=== PATIENT | male | born 1940 | race Caucasian/White ===

== ENCOUNTER 2017-05-22 07:19 | Day surgery (SDC) | payer MEDICARE, OTHER ==
--- NOTE | 2017-05-08 11:10 | HP ---
CC: Conor Kendall MD HISTORY AND PHYSICAL: DATE OF PLANNED ADMISSION/SURGERY: 05/22/17 HISTORY OF PRESENT ILLNESS: Mr. Barrientos is a 77-year-old white male who is admitted with bladder tumors for cystoscopy, bilateral retrograde pyelographies and transurethral resection of bladder tumors. I have been following Mr. Barrientos for the last 5 years because of elevated PSA. 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 He underwent a robotic radical prostatectomy at [facility] in May 2012. The pathology showed stage II Adelita 7 disease. He has done very well since his surgery and his PSA has remained undetectable at 0.0. He continued to have good stream and good urinary continence. He presented to my office for followup and because of a new onset of painless gross hematuria. This was not associated with any flank pain or any changes in his voiding. Bilateral renal ultrasound was normal showing small bilateral simple cysts. Cystoscopy showed 3 bladder tumors located in the left lateral bladder wall just proximal to the bladder neck. The tumors measured between 1 and 1.5 cm in size and looked well differentiated and non invasive. The left ureteral orifice was not involved. The rest of the bladder wall looked normal. The patient has history of allergy to IV CONTRAST, no CT urogram was obtained pre-op, because of that reason, and to evaluate his upper tracts, bilateral retrograde pyelographies will be performed. PAST MEDICAL HISTORY/SYSTEM REVIEW: He was a chronic heavy smoker until 2 years ago when he stopped. He is hypertensive, controlled on lisinopril 40 mg daily. He has hypothyroidism , on Synthroid 25 mcg daily. He has hyperlipidemia and is maintained on Lipitor 40 mg daily and on Crestor 10 mg daily. ALLERGIES: He denies any allergies to medications. He reports having a rash to IV CONTRAST. PHYSICAL EXAMINATION GENERAL: Pleasant and healthy-looking white male. VITAL SIGNS: Blood pressure 130/80, pulse of 80. LUNGS: Clear. HEART: Regular and rhythmic. No murmurs. ABDOMEN: Soft. No masses, no tenderness and no CVA tenderness. EXTERNAL GENITALIA: Normal. IMPRESSION: 1. Bladder tumors with past history of smoking. 2. Status post radical prostatectomy for prostate carcinoma with good surgical result and no evidence of recurrent disease. PLAN: For cystoscopy, bilateral retrograde pyelographies to evaluate the upper tracts, and transurethral resection of the bladder tumors. I discussed above plans in detail with the patient and his . They both understand that he is going to need close follow-ups including frequent cystoscopies. He also might need additional treatments depending upon the pathology report. All of their questions were answered. [id number]/[facility] #: [id number] TEODORO
[~2017-05-22 07:19] MED LIST: Buffered Lidocaine 0.9% SYRIN* 5 ML/SYR SYRINGE INTRADERM ONE; Dexamethasone IV* 4 MG/ML 1 ML (4 MG) IV SLOW PU ONE
[2017-05-22] MEDS ORDERED: cefTRIAXone(*) 2 GM ADDV.VIAL IVPB ONE (07:20)
[2017-05-22] MEDS ORDERED: Dexamethasone IV* 4 MG/ML 1 ML (4 MG) ONE ×2 (07:20→07:22)
[2017-05-22] MEDS ORDERED: Propofol* 10 MG/ML 20 ML BTL IV PUSH ONE (08:49)
[2017-05-22] MEDS ORDERED: Chloroprocaine 2%* 20 ML VIAL ONE (08:49)
[2017-05-22] MEDS ORDERED: Ondansetron INJ* 2 MG/ML VIAL ONE (08:49)
[2017-05-22] MEDS ORDERED: Midazolam* 1 MG/ML 5 ML VIAL (5 MG) ONE (08:49)
[2017-05-22] MEDS ORDERED: Iohexol 180 (CONTRAST) 10 ML SDV IV ONE ×2 (09:31→10:02)
[2017-05-22] MEDS ORDERED: Furosemide IV* 10 MG/ML 2 ML VIAL (20 MG) ONE (09:43)
[2017-05-22] MEDS ORDERED: Phenylephrine INJ* 10 MG/ML 1 ML VIAL (10 MG) ONE (09:51)
[2017-05-22] MEDS ORDERED: oxyCODONE/Acetamin 5/325 MG* TAB PO PRN (10:26)
[2017-05-22] MEDS ORDERED: fentaNYL* 50 MCG/ML 2 ML VIAL (100 MCG VIAL) IV PRN (10:26)
[2017-05-22] MEDS ORDERED: Ondansetron INJ* 2 MG/ML VIAL IV PRN (10:26)
[2017-05-22] MEDS ORDERED: DiMENhydriNATE IV* 50 MG/ML VIAL IV PUSH PRN (10:26)
[2017-05-22] MEDS ORDERED: fentaNYL* 50 MCG/ML 2 ML VIAL (100 MCG VIAL) ONE (10:55)
[2017-05-22] MEDS ORDERED: mitoMYcin PWD* 40 MG in Sterile Water for Inj* 40 ML IRRIGATION ONE (11:00)
[2017-05-22] MEDS ORDERED: oxyCODONE/Acetamin 5/325 MG* TAB ONE ×2 (11:17→11:52)
[2017-05-22 13:35] VITALS: BP 160/88
--- NOTE | 2017-05-22 13:37 | RAD ---
INDICATION: Cystoscopy with bilateral ureteroscopy COMPARISON: None FINDINGS: 21 seconds of fluoroscopy were provided for the urology department. Fluoroscopic spot imaging of the abdomen were obtained for operative control. There is bilateral ureteroscopy. No ureteral or renal pelvic filling defects are appreciated on the submitted images. There is no hydronephrosis. CPT II Codes: 6045F (fluoro time doc)
--- NOTE | 2017-05-23 00:02 | OP ---
CC: Dr. Kendall OPERATIVE REPORT: DATE OF OPERATION: 05/22/17 DATE OF : 44 SURGEON: Lawrence Jimenes MD. ANESTHESIOLOGIST: Artie Thompson MD ANESTHESIA: Spinal. PRE-OP DIAGNOSES: 1. Multiple bladder tumors (left lateral and anterior bladder neck). 2. Status post radical prostatectomy. POST-OP DIAGNOSES: 1. Multiple bladder tumors (left lateral and anterior bladder neck). 2. Status post radical prostatectomy. OPERATIVE PROCEDURE: 1. Cystoscopy. 2. Bilateral retrograde pyelographies. 3. Transurethral resection of bladder tumors (3 tumors, 1.5 cm each). 4. Placement of left ureteral stent (6-Rwandan). INDICATIONS FOR PROCEDURE: Mr. Barrientos is a 77-year-old white male who had undergone a robotic radical prostatectomy for bulky Adelita 6 adenocarcinoma of the prostate in February 2012. He had good results and no evidence of recurrent disease. He presented to my office because of new onset of recurrent episodes of gross hematuria. He was a heavy smoker until 2 years ago. Renal ultrasound was normal. Cystoscopy showed several tumors just proximal to the bladder neck involving the lateral and anterior deleon. The patient has a history of allergic reaction to IV CONTRAST, so a CT urogram was not obtained. Because of the above history and findings, the patient was admitted for the above procedures. PATHOLOGY AT CYSTOSCOPY: The penile and bulbar urethrae looked normal. 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 Examination of the bladder showed 3 tumors that were located just proximal to the bladder neck, starting just lateral to the left ureteral orifice, and extending till the ant wall. 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 Bilateral retrograde pyelographies showed no abnormal filling defects in the ureters or in the collecting systems and no hydronephrosis. DESCRIPTION OF PROCEDURE: After successful spinal anesthesia, the patient was placed in the lithotomy position and was prepped and draped in the usual manner. Cystoscopy was performed. The bladder was carefully inspected and the above findings were noted. A flexible tip guidewire was then introduced into the left orifice. An open- ended catheter was fed on top of the guidewire and positioned in the distal ureter. Retrograde pyelography was then performed filling up the ureter and the collecting system and demonstrating no pathology. Similar retrograde was performed on the right side. The cystoscope was then removed and the resectoscope was introduced inside the bladder. Water was used for irrigation and the inflow and outflow were adjusted to avoid overdistention of the bladder. The tumors were resected down to muscle.The bladder was irrigated and the resected tissue was evacuated and sent for pathology. Inspection showed no residual tumors and no bladder perforation. There was however partial resection of a portion of the intramural portion of the Lt ureter just proximal to the orifice, located posterior to one of the tumors. Decision was made to place a Lt ureteral stent. A left retrograde was then performed and a 6-Rwandan stent was then placed with the proximal end coiling in the collecting system and the distal end coiling inside the bladder. Resectoscope was reintroduced inside the bladder. Extensive fulguration of the resected bed of the tumor was performed achieving a very good hemostasis. After a final inspection, which showed no residual tumors and very good hemostasis and no evidence of any bladder perforation, the resectoscope was removed and the size 16-Rwandan Alegre catheter was passed inside the bladder and the balloon inflated with 10 cc of water. The patient tolerated the procedure well and left the operating room in good condition. The blood loss was minimal. The specimen was bladder tumors. The plan is to give the patient 1 dose of intravesical mitomycin C in the recovery room. The stent will be removed in the office in about 3 weeks. [id number]/[facility] #: [id number] TEODORO
== END 2017-05-22 13:28 | disposition home or self-care (01) ==
LOC: OR 07:19
PROVIDERS: ATTEND Urology
DX: C67.2 Malignant neoplasm of lateral wall of bladder (principal); Z90.79 Acquired absence of other genital organ(s); Z85.46 Personal history of malignant neoplasm of prostate; Z96.0 Presence of urogenital implants; Z87.891 Personal history of nicotine dependence; Z91.041 Radiographic dye allergy status; I10 Essential (primary) hypertension; E03.9 Hypothyroidism, unspecified; E78.5 Hyperlipidemia, unspecified
CPT/HCPCS: 74420; 88305; A9270-GY; C1876; J0696; J1100; J1940; J2250; J2400; J2405; J2704; J3010; J9280

== ENCOUNTER 2018-10-08 08:05 | Emergency (ER) | payer MEDICARE, OTHER ==
--- NOTE | 2018-10-08 08:30 | ED ---
Back Pain - HPI Summary HPI Summary: Pt is a 78 y/o male who presents to the ED c/o back pain. Pt injured his back 4 weeks ago and since then has been having severe right lower back pain. The pain is rated a 9/10 in severity and radiates down his right leg. Pt reports pain with lying flat, standing straight, movement, and bending over. He also c/o decreased ROM of his LE due to pain. Pt denies any pain to palpation, urinary/ bowel incontinence, or weakness. He was sent here by Dr. Kendall for an MRI and pain control. Pt attempted to have an MRI 4 days ago but was unsuccessful because he could not lie flat due to the pain. He has taken Hydrocodone without any pain relief. Pt had an XR done which revealed arthritis. PMSHx arthritis, left knee replacement. - History of Current Complaint Chief Complaint: EDBackInjuryPain Stated Complaint: "BACK INJURY" PER PT Time Seen by Provider: 10/08/18 08:27 Hx Obtained From: Patient, Family/[employer] - Onset/Duration: Sudden Onset, Lasting Weeks - 4, Still Present Onset/Duration: Traumatic - after injury Timing: Constant Back Pain Location: Is Discrete @ - right lower back, radiates to RLE Severity Currently: Severe Pain Intensity: 9 Pain Scale Used: 0-10 Numeric Aggravating Symptom(s): Movement, Bending, Other - Lying flat, standing straight Alleviating Symptom(s): Nothing Associated Signs And Symptoms: Negative: Weakness, Bladder Incontinence, Bowel Incontinence Related History: Similar Episode Dx As - hx arthritis - Allergies/Home Medications Allergies/Adverse Reactions: Allergies Allergy/AdvReac Type Severity Reaction Status Date / Time iodine Allergy Hives Verified 10/08/18 08:12 Home Medications: Home Medications Cholecalciferol TAB* [Vitamin D TAB*] 400 unit PO DAILY 10/08/18 [History Confirmed 10/08/18] Lisinopril TAB* [Prinivil TAB*] 10 mg PO DAILY 10/08/18 [History Confirmed 10/08] Omeprazole 20 mg PO DAILY 10/08/18 [History Confirmed 10/08/18] Rosuvastatin Calcium 40 mg PO DAILY 10/08/18 [History Confirmed 10/08/18] Umeclidinium 62.5 MDI(NF) [Incruse ELLIPTA MDI (NF)] 1 inh INH DAILY 10/08/18 [ History Confirmed 10/08/18] PMH/Surg Hx/FS Hx/Imm Hx Endocrine/Hematology History: Reports: Hx Thyroid Disease, Hx Anemia Cardiovascular History: Reports: Hx Hypercholesterolemia, Hx Hypertension GI History: Reports: Hx Gastroesophageal Reflux Disease, Other GI Disorders - partial colon resection History: Reports: Other Problems/Disorders - prostate CA Denies: Hx Renal Disease Musculoskeletal History: Reports: Hx Arthritis Sensory History: Reports: Hx Contacts or Glasses Denies: Hx Hearing Aid, Other Sensory Impairments Opthamlomology History: Reports: Hx Contacts or Glasses Denies: Other Sensory Impairments - Cancer History Cancer Type, Location and Year: Prostate CA Hx Chemotherapy: No Hx Radiation Therapy: No Hx Palliative Cancer Treatment: No - Surgical History Surgery Procedure, Year, and Place: Lt Knee replacement surgery (June 2016) . Colon resection. Prostatectomy Hx Anesthesia Reactions: No - Immunization History Date of Tetanus Vaccine: up to date Date of Influenza Vaccine: up to date Infectious Disease History: No Infectious Disease History: Denies: Traveled Outside the [place] in Last 30 Days - Family History Known Family History: Positive: Other - CA - Social History Alcohol Use: Rare Alcohol Amount: 6 pack every Thursday Hx Substance Use: No Substance Use Type: Reports: None Hx Tobacco Use: Yes Smoking Status (MU): Former Smoker Amount Used/How Often: 50 years ago, 1.5 ppd Review of Systems Negative: Other - incontinence Negative: incontinence Positive: Myalgia - right lower back radiating down RLE, Decreased ROM - due to pain. Negative: Other - pain to palpation Negative: Weakness All Other Systems Reviewed And Are Negative: Yes Physical Exam - Summary Physical Exam Summary: Appearance: The patient is well-nourished in no acute distress and in no acute pain. Skin: The skin is warm and dry and skin color reflects adequate perfusion. HEENT: The head is normocephalic and atraumatic. The pupils are equal and reactive. The conjunctivae are clear and without drainage. Nares are patent and without drainage. Mouth reveals moist mucous membranes and the throat is without erythema and exudate. The external ears are intact. The ear canals are patent and without drainage. The tympanic membranes are intact. Neck: The neck is supple with full range of motion and non-tender. There are no carotid bruits. There is no neck vein distension. Respiratory: Chest is non-tender. Lungs are clear to auscultation and breath sounds are symmetrical and equal. Cardiovascular: Heart is regular rate and rhythm. There is no murmur or rub auscultated. There is no peripheral edema and pulses are symmetrical and equal. Abdomen: The abdomen is soft and non-tender. There are normal bowel sounds heard in all four quadrants and there is no organomegaly palpated. Musculoskeletal: There is no back tenderness noted. Extremities are non-tender with limited range of motion due to pain. There is good capillary refill. There is no peripheral edema or calf tenderness elicited. Positive bilateral straight leg raise. Several beats of non-sustained clonus in the right foot. Neurological: Patient is alert and oriented to person, place and time. The patient has symmetrical motor strength in all four extremities. Cranial nerves are grossly intact. Deep tendon reflexes are symmetrical and equal in all four extremities. Psychiatric: The patient has an appropriate affect and does not exhibit any anxiety or depression. Triage Information Reviewed: Yes Vital Signs On Initial Exam: Initial Vitals Temp Pulse Resp BP Pulse Ox 98 F 94 16 147/88 96 10/08/18 08:08 10/08/18 08:08 10/08/18 08:08 10/08/18 08:08 10/08/18 08:08 Vital Signs Reviewed: Yes Diagnostics - Vital Signs Vital Signs Temp Pulse Resp BP Pulse Ox 10/08/18 08:08 98 F 94 16 147/88 96 - Laboratory Lab Statement: Any lab studies that have been ordered have been reviewed, and results considered in the medical decision making process. - Radiology Lumbar Spine MRI Radiology Interpretation Completed By: Radiologist Summary of Radiographic Findings: Multilevel degenerative spondylosis and posterior element osteoarthritis with resulting multilevel acquired spinal stenosis as described. The most significant abnormality is severe acquired central canal stenosis at L2-L3 primarily due to a large posterior central to RIGHT subarticular disc extrusion. ED physician reviewed radiology report. Re-Evaluation - Re-Evaluation First Eval Re-Evaluation Time: 12:30 Change: Improved Comment: Pt feels better. Back Pain Course/Dx - Course Course Of Treatment: Mr. Barrientos presented with gradually increasing right leg sciatic type pain over the last 4 weeks. He had been seen by his primary care provider and treated without improvement. He was scheduled for an MRI scan but outpatient medications are not sufficient to allow him to stay still for. Therefore he was sent to the emergency department. He denies weakness or incontinence. He states it is very difficult for him to move secondary to pain. The pain starts in his low back and goes down his right thigh. On exam he had a positive straight leg raise and some nonsustained beats of clonus in the right foot. He was given Ativan as a muscle relaxer here and an MRI was obtained which showed significant disc protrusion consistent with his symptoms. Dr. Power was contacted and was willing to see the patient the hospital if he needed to be hospitalized for follow-up with the patient. The patient was improved with the medications and felt that he could be seen as an outpatient but was requesting [facility] follow-up as Dr. Kendall is his PCP. I will add Ativan for a few days as a muscle relaxer to give him a chance to get in to see Dr. Boyce. - Diagnoses Provider Diagnoses: Herniated disc - Provider Notifications Discussed Care Of Patient With: Vassilios Talyaopoulos Time Discussed With Above Provider: 12:22 Instructed by Provider To: Other - Pt will most likely need surgery, and he should follow up with Jhoan via Dr. Kendall. Discharge - Sign-Out/Discharge Documenting (check all that apply): Patient Departure - Discharge Patient Received Moderate/Deep Sedation with Procedure: No - Discharge Plan Condition: Improved Disposition: HOME Prescriptions: LORazepam TAB(*) [Ativan TAB(*)] 1 mg PO Q6H PRN #20 tab MDD 4 PRN Reason: Pain Patient Education Materials: Acute Low Back Pain (ED), Lower Back Exercises (ED ) Referrals: Conor Kendall MD [Primary Care Provider] - (Next week) Additional Instructions: RETURN TO THE ED WITH ANY NEW OR WORSENING SYMPTOMS. - Billing Disposition and Condition Condition: IMPROVED Disposition: Home - Attestation Statements Document Initiated by Scribe: Yes Documenting Scribe: Aliyah Rodríguez Provider For Whom Shahzad is Documenting (Include Credential): Jose J Burger MD Scribe Attestation: Aliyah Pyle, scribed for Jose J Burger MD on 10/08/18 at 1412. Scribe Documentation Reviewed: Yes Provider Attestation: The documentation as recorded by the Aliyah alexander accurately reflects the service I personally performed and the decisions made by me, Jose J Burger MD Status of Scribe Document: Viewed
[2018-10-08] MEDS ORDERED: LORazepam INJ* 2 MG/ML 1 ML VIAL IV ONE ×2 (08:36→10:27)
[2018-10-08] MEDS ORDERED: Ketorolac INJ* 30 MG/ML 1 ML VIAL IV PUSH ONE (08:36)
[2018-10-08 12:55] VITALS: BP 130/62
== END 2018-10-08 12:54 | disposition home or self-care (01) ==
LOC: ED 08:05
DX: M51.26 Other intervertebral disc displacement, lumbar region (principal); Z87.891 Personal history of nicotine dependence; E07.9 Disorder of thyroid, unspecified; E78.00 Pure hypercholesterolemia, unspecified; I10 Essential (primary) hypertension; K21.9 Gastro-esophageal reflux disease without esophagitis
CPT/HCPCS: 72148; 96361; 96374; 96375; 99283; J1885; J2060

== ENCOUNTER 2020-07-09 16:25 | Inpatient (IN) ==
[2020-07-09 18:31] LABS: ABS Lymphocytes 0.6 10^3/ul (1.0-4.8); ABS Monocytes 1.1 10^3/ul (0-0.8); ABS Neutrophils 5.5 10^3/ul (1.5-7.7); Eosinophil % 0.1 %; Hematocrit 46 % (42-52); Hemoglobin 15.4 g/dL (14.0-18.0); Lymphocyte % 8.9 %; Mean Corpuscular HGB Conc 33 g/dL (31-36); Mean Corpuscular Hemoglobin 30 pg (27-31); Mean Corpuscular Volume 91 fL (80-94); Mean Platelet Volume 9.9 fL (7.4-10.4); Platelet Count 204 10^3/uL (150-450); Red Cell Distribution Width 15 % (10-15); White Blood Count 7.3 10^3/uL (3.5-10.8)
[2020-07-09 18:40] LABS: INR 1.12 (0.82-1.09)
[2020-07-09 19:02] LABS: Albumin 3.8 g/dL (3.2-5.2); Albumin/Globulin Ratio 1.2 (1-3); BUN/Creatinine Ratio 21.4 (8-20); C Reactive Protein 8.11 mg/L (<8.01); Calcium 9.4 mg/dL (8.6-10.3); EGFR African American 15.3 (>60); EGFR Non-African American 12.6 (>60); Globulin 3.3 g/dL (2-4); Influenza A Molecular Negative (Negative); Influenza B Molecular Negative (Negative); Total Bilirubin 0.4 mg/dL (0.2-1.0); Total Protein 7.1 g/dL (6.4-8.9); Troponin I 0.02 ng/mL (<0.03)
[2020-07-09 19:07] LABS: Potassium 5.5 mmol/L (3.5-5.0)
[2020-07-09 20:29] LABS: Ferritin 1317.7 ng/mL (24-336)
[2020-07-09] MEDS: NS 0.9% 1000 ml BAG 1,000 ML IV ONE (20:39)
[2020-07-09 21:09] LABS: Urine Appearance Turbid; Urine Bilirubin Negative (Negative); Urine Blood 1+ (Negative); Urine Color Yellow; Urine Glucose Negative (Negative); Urine Ketones Negative (Negative); Urine Nitrite Negative (Negative); Urine Protein 1+(30 mg/dL) (Negative); Urine Specific Gravity 1.014 (1.010-1.030); Urine Urobilinogen Negative (Negative)
[2020-07-09 21:15] LABS: Urine Bacteria Absent (Absent); Urine Red Blood Cell Trace(0-2/hpf) (Absent); Urine Squamous Epithelial Cell Present (Absent); Urine White Blood Cell Trace(0-5/hpf) (Absent)
[2020-07-09] MEDS ORDERED: Ondansetron 4 mg VIAL 2 MG/ML 2 ml VIAL IV PRN (21:43)
[2020-07-09] MEDS ORDERED: Albuterol 2.5mg/3 ml (0.083%) NEB.SOLN INH PRN (21:43)
[2020-07-09] MEDS ORDERED: NS 0.9% 1000 ml BAG 1,000 ML IV SCH (21:45)
[2020-07-09] MEDS ORDERED: Albuterol/Ipratropium NEB.SOL (2.5/0.5 MG) 3 ML NEB.SOLN INH SCH (22:00)
[2020-07-10] MEDS ORDERED: Albuterol/Ipratropium NEB.SOL (2.5/0.5 MG) 3 ML NEB.SOLN INH SCH
[2020-07-10] MEDS: Heparin 5000 UNITS/ML 1 mL VIAL SUBCUT SCH ×3 (00:05→15:17)
[2020-07-10 00:20] LABS: Urine Creatinine Concentration 99.33 mg/dL
[2020-07-10 00:33] LABS: Activated Partial Thrombo Time 24.6 seconds (26.0-38.0); INR 1.16 (0.82-1.09)
[2020-07-10 00:38] LABS: BUN/Creatinine Ratio 22.4 (8-20); Calcium 8.3 mg/dL (8.6-10.3); EGFR African American 16.5 (>60); EGFR Non-African American 13.6 (>60); Potassium 5.1 mmol/L (3.5-5.0)
[2020-07-10 06:43] LABS: ABS Lymphocytes 0.4 10^3/ul (1.0-4.8); ABS Monocytes 0.3 10^3/ul (0-0.8); ABS Neutrophils 4.7 10^3/ul (1.5-7.7); Hematocrit 40 % (42-52); Hemoglobin 13.5 g/dL (14.0-18.0); Mean Corpuscular HGB Conc 34 g/dL (31-36); Mean Corpuscular Hemoglobin 31 pg (27-31); Mean Corpuscular Volume 90 fL (80-94); Mean Platelet Volume 10.1 fL (7.4-10.4); Platelet Count 192 10^3/uL (150-450); Red Blood Count 4.44 10^6 /uL (4.18-5.48); Red Cell Distribution Width 15 % (10-15); White Blood Count 5.5 10^3/uL (3.5-10.8)
[2020-07-10 06:50] LABS: INR 1.13 (0.82-1.09)
[2020-07-10 07:13] LABS: BUN/Creatinine Ratio 23.4 (8-20); Calcium 8.3 mg/dL (8.6-10.3); EGFR African American 17.8 (>60); EGFR Non-African American 14.7 (>60)
[2020-07-10 08:15] LABS: Potassium 5.5 mmol/L (3.5-5.0)
[2020-07-10] MEDS ORDERED: Mometasone/Formoter 200/5 MDI INH SCH (09:00)
[2020-07-10] MEDS: Aspirin EC 81 mg TAB.EC (enteric coated) PO SCH (10:30)
[2020-07-10] MEDS: Cholecalciferol (VIT D3) 400 units TAB PO SCH (10:30)
[2020-07-10] MEDS: Mometasone/Formoter 200/5 MDI INH SCH ×2 (10:48→21:00)
[2020-07-10] MEDS ORDERED: NS 0.9% 1000 ml BAG 1,000 ML IV SCH (14:00)
[2020-07-10] MEDS ORDERED: Sodium Polystyrene ORAL.SUSP 15 GM/60 ML BTL PO ONE (14:30)
[2020-07-10] MEDS ORDERED: Remdesivir 5 MG/ML LIQ IV Vial 200 MG in NS 0.9% 250 ml 210 ML IV ONE (18:10)
[2020-07-10] MEDS ORDERED: Enoxaparin 40 MG/0.4 ML SYR SUBCUT SCH (19:00)
[2020-07-10] MEDS ORDERED: Remdesivir 200 mg LOADING DOSE X1 (LIQ Vial) IV ONE (19:00)
[2020-07-10 19:46] LABS: Blood Urea Nitrogen 97 mg/dL (6-24); CO2 Carbon Dioxide 16 mmol/L (22-32); Calcium 8.5 mg/dL (8.6-10.3); Chloride 110 mmol/L (101-111); EGFR African American 18.3 (>60); EGFR Non-African American 15.1 (>60); Glucose 216 mg/dL (70-100); Sodium 139 mmol/L (135-145)
[2020-07-10 21:01] LABS: Anion Gap 13 mmol/L (2-11)
[2020-07-11 07:48] LABS: ABS Lymphocytes 0.6 10^3/ul (1.0-4.8); ABS Monocytes 0.9 10^3/ul (0-0.8); ABS Neutrophils 7.8 10^3/ul (1.5-7.7); Hematocrit 38 % (42-52); Hemoglobin 12.6 g/dL (14.0-18.0); Lymphocyte % 6.2 %; Mean Corpuscular HGB Conc 34 g/dL (31-36); Mean Corpuscular Hemoglobin 30 pg (27-31); Mean Corpuscular Volume 90 fL (80-94); Mean Platelet Volume 10.2 fL (7.4-10.4); Platelet Count 230 10^3/uL (150-450); Red Blood Count 4.16 10^6 /uL (4.18-5.48); Red Cell Distribution Width 14 % (10-15); White Blood Count 9.2 10^3/uL (3.5-10.8)
[2020-07-11 08:04] LABS: BUN/Creatinine Ratio 28.6 (8-20); C Reactive Protein 4.63 mg/L (<8.01); Calcium 8.2 mg/dL (8.6-10.3)
[2020-07-11] MEDS: Mometasone/Formoter 200/5 MDI INH SCH ×2 (08:33→20:53)
[2020-07-11] MEDS: Cholecalciferol (VIT D3) 400 units TAB PO SCH (09:05)
[2020-07-11] MEDS: Aspirin EC 81 mg TAB.EC (enteric coated) PO SCH (09:07)
[2020-07-11 09:54] LABS: Potassium 4.7 mmol/L (3.5-5.0)
[2020-07-11 17:07] LABS: BUN/Creatinine Ratio 29.8 (8-20); Calcium 8.3 mg/dL (8.6-10.3); EGFR African American 27.6 (>60); EGFR Non-African American 22.8 (>60); Potassium 4.8 mmol/L (3.5-5.0)
[2020-07-11] MEDS ORDERED: Remdesivir 100 mg Q24H MAINTENANCE DOSING (LIQ Vial) IV SCH (18:00)
[2020-07-11] MEDS ORDERED: Remdesivir 5 MG/ML LIQ IV Vial 100 MG in NS 0.9% 250 ml 230 ML IV SCH (18:15)
[2020-07-11] MEDS: Enoxaparin 30 MG/0.3 ML SYR SUBCUT SCH (19:53)
[2020-07-11] MEDS: NS 0.9% 1000 ml BAG 1,000 ML IV ONE (22:22)
[2020-07-12 06:59] LABS: ABS Lymphocytes 0.5 10^3/ul (1.0-4.8); ABS Monocytes 1.3 10^3/ul (0-0.8); ABS Neutrophils 12.4 10^3/ul (1.5-7.7); Hematocrit 37 % (42-52); Hemoglobin 12.3 g/dL (14.0-18.0); Lymphocyte % 3.5 %; Mean Corpuscular HGB Conc 33 g/dL (31-36); Mean Corpuscular Hemoglobin 30 pg (27-31); Mean Corpuscular Volume 91 fL (80-94); Mean Platelet Volume 10.3 fL (7.4-10.4); Platelet Count 255 10^3/uL (150-450); Red Blood Count 4.11 10^6 /uL (4.18-5.48); Red Cell Distribution Width 14 % (10-15); White Blood Count 14.2 10^3/uL (3.5-10.8)
[2020-07-12 07:25] LABS: BUN/Creatinine Ratio 31.3 (8-20); Calcium 8.1 mg/dL (8.6-10.3); EGFR African American 36.3 (>60); Potassium 4.9 mmol/L (3.5-5.0)
[2020-07-12] MEDS: Mometasone/Formoter 200/5 MDI INH SCH ×2 (08:34→19:56)
[2020-07-12] MEDS ORDERED: Remdesivir 5 MG/ML LIQ IV Vial 200 MG in NS 0.9% 250 ml 210 ML IV ONE (09:00)
[2020-07-12] MEDS: Aspirin EC 81 mg TAB.EC (enteric coated) PO SCH (11:08)
[2020-07-12] MEDS: Cholecalciferol (VIT D3) 400 units TAB PO SCH (11:09)
[2020-07-12] MEDS: Enoxaparin 30 MG/0.3 ML SYR SUBCUT SCH (19:54)
[2020-07-13 05:47] LABS: ABS Lymphocytes 0.5 10^3/ul (1.0-4.8); ABS Monocytes 1.1 10^3/ul (0-0.8); ABS Neutrophils 9.4 10^3/ul (1.5-7.7); Hematocrit 36 % (42-52); Lymphocyte % 4.3 %; Mean Corpuscular HGB Conc 33 g/dL (31-36); Mean Corpuscular Hemoglobin 30 pg (27-31); Mean Corpuscular Volume 90 fL (80-94); Mean Platelet Volume 9.3 fL (7.4-10.4); Nucleated Red Blood Cells % 0.1; Platelet Count 270 10^3/uL (150-450); Red Blood Count 4.02 10^6 /uL (4.18-5.48); Red Cell Distribution Width 14 % (10-15)
[2020-07-13 06:03] LABS: Albumin 2.9 g/dL (3.2-5.2); Albumin/Globulin Ratio 1.1 (1-3); Calcium 8.3 mg/dL (8.6-10.3); EGFR African American 41.9 (>60); EGFR Non-African American 34.7 (>60); Globulin 2.6 g/dL (2-4); Total Bilirubin 0.3 mg/dL (0.2-1.0); Total Protein 5.5 g/dL (6.4-8.9)
[2020-07-13 06:04] LABS: Potassium 5.1 mmol/L (3.5-5.0)
[2020-07-13] MEDS: Aspirin EC 81 mg TAB.EC (enteric coated) PO SCH (08:12)
[2020-07-13] MEDS: Cholecalciferol (VIT D3) 400 units TAB PO SCH (08:13)
[2020-07-13 08:20] VITALS: BP 157/79
[2020-07-13] MEDS: Mometasone/Formoter 200/5 MDI INH SCH (08:22)
[2020-07-13] MEDS ORDERED: Remdesivir 5 MG/ML LIQ IV Vial 100 MG in NS 0.9% 250 ml 230 ML IV SCH (09:00)
== END 2020-07-13 11:30 | disposition home health service (06) | DRG 177 ==
LOC: ED 16:25 → MED 21:40
PROVIDERS: ADMIT Internal Medicine; ATTEND Internal Medicine

== ENCOUNTER 2023-09-27 08:17 | Inpatient (IN) ==
[2023-09-27 09:15] LABS: Hematocrit 40.7 % (38-53); Hemoglobin 13.5 g/dL (13.2-16.3); Mean Corpuscular Hemoglobin 30.5 pg (27-33); Mean Corpuscular Hgb Conc 33.1 g/dL (31-36); Mean Corpuscular Volume 92.1 fL (80-97); Mean Platelet Volume 8.4 fL (7.5-11.2); Platelet Count 259 10^3/uL (150-450); Red Blood Count 4.42 10^6/uL (4.06-5.63); Red Cell Distribution Width 13.9 % (12-17); White Blood Count 11.9 10^3/uL (3.6-10.2)
[2023-09-27 09:48] LABS: ABS Basophils 0.1 10^3/uL (0.0-0.1); ABS Eosinophils 0.1 10^3/uL (0.0-0.5); ABS Lymphocytes 0.8 10^3/uL (1.0-4.8); ABS Monocytes 1.6 10^3/uL (0.0-1.1); ABS Neutrophils 9.5 10^3/uL (1.5-7.6); Eosinophil % 0.6 %; Lymphocyte % 6.5 %
[2023-09-27 09:57] LABS: ALT 13 U/L (7-52); AST 15 U/L (13-39); Albumin/Globulin Ratio 1.7 (1-3); Alcohol, S < 13 mg/dL (<13); Alkaline Phosphatase 83 U/L (35-149); Anion Gap 7 mmol/L (2-16); Blood Urea Nitrogen 22 mg/dL (6-24); CO2 Carbon Dioxide 28 mmol/L (22-32); Calcium 8.7 mg/dL (8.6-10.3); Chloride 98 mmol/L (101-111); Creatinine, Serum 1.57 mg/dL (0.67-1.17); Globulin 2.4 g/dL (2-4); Glucose 106 mg/dL (70-100); Potassium 4.7 mmol/L (3.5-5.0); Sodium 133 mmol/L (135-145); Total Bilirubin 0.4 mg/dL (0.2-1.0); Total Protein 6.4 g/dL (6.4-8.9)
[2023-09-27 10:01] LABS: Urine Appearance Clear; Urine Bilirubin Negative (Negative); Urine Blood Negative (Negative); Urine Color Light-Yellow; Urine Glucose Negative (Negative); Urine Ketones Negative (Negative); Urine Nitrite Negative (Negative); Urine Protein 2+ (>=100 mg/dL) (Negative); Urine Specific Gravity 1.018 (1.002-1.030); Urine Urobilinogen Negative (Negative)
[2023-09-27 10:03] LABS: Urine Bacteria Absent /HPF (Absent); Urine Red Blood Cell 1+(3-5/hpf) /HPF (0-Trace); Urine Squamous Epithelial Cell Present /HPF (Absent); Urine White Blood Cell Absent /HPF (0-Trace)
[2023-09-27] MEDS: Albuterol/Ipratropium NEB.SOL (2.5/0.5 MG) 3 ML NEB.SOLN INH ONE (11:40)
[2023-09-27] MEDS: Dexamethasone IV 4 MG/ML VIAL 1 ml VIAL IV SLOW PU ONE (11:41)
[2023-09-27] MEDS ORDERED: Polyethylene Glycol 3350 17 GM PACKET PO PRN (12:46)
[2023-09-27] MEDS ORDERED: Albuterol/Ipratropium NEB.SOL (2.5/0.5 MG) 3 ML NEB.SOLN INH PRN ×2 (12:50→14:16)
[2023-09-27] MEDS: methylPREDNISolone SOD SUCC 40 mg/ml 1 ml VIAL IV SCH (13:46)
[2023-09-27] MEDS: Albuterol/Ipratropium NEB.SOL (2.5/0.5 MG) 3 ML NEB.SOLN INH SCH (14:41)
[2023-09-27] MEDS: Enoxaparin 30 MG/0.3 ML SYR SUBCUT SCH (15:03)
[2023-09-27] MEDS: Al Hydrox/Mg Hydrox/Simet LIQ 30 ML UDC PO PRN (21:43)
[2023-09-27] MEDS: Albuterol HFA INHALER 8 gm MDI INH PRN (22:32)
[2023-09-28 06:25] LABS: ABS Lymphocytes 0.8 10^3/uL (1.0-4.8); ABS Neutrophils 6.5 10^3/uL (1.5-7.6); ABS Nucleated RBC 0.01 10^3/ul; Hemoglobin 13.5 g/dL (13.2-16.3); Lymphocyte % 9.9 %; Mean Corpuscular Hemoglobin 31.1 pg (27-33); Mean Corpuscular Hgb Conc 33.8 g/dL (31-36); Mean Platelet Volume 8.8 fL (7.5-11.2); Nucleated Red Blood Cells % 0.1 %/100WBC (0.0-0.8); Platelet Count 233 10^3/uL (150-450); Red Blood Count 4.35 10^6/uL (4.06-5.63); Red Cell Distribution Width 14.2 % (12-17); White Blood Count 8.4 10^3/uL (3.6-10.2)
[2023-09-28 06:43] LABS: Creatinine, Serum 1.69 mg/dL (0.67-1.17); Potassium 4.7 mmol/L (3.5-5.0); eGFR CKD-EPI 40.3 (>60)
[2023-09-28 10:53] VITALS: BP 126/79
[2023-09-28] MEDS: Venlafaxine XR 75 mg PO SCH (10:58)
[2023-09-28] MEDS: methylPREDNISolone SOD SUCC 40 mg/ml 1 ml VIAL IV SCH (11:03)
== END 2023-09-28 15:25 | disposition home or self-care (01) | DRG 193 ==
LOC: ED 08:17 → EDHOLD 08:17 → OBSVTOIN 11:46 → INTOOBSV 11:46 → MED 17:50
PROVIDERS: ADMIT Internal Medicine; ATTEND Internal Medicine